=== PATIENT | female | born 1975 | race Caucasian/White ===

== ENCOUNTER 2016-11-04 13:25 | Emergency (ER) | payer MEDICAID ==
[~2016-11-04] VITALS: Ht 162.6 cm; Wt 82.6 kg
[~2016-11-04 13:25] MED LIST: DOCU-67 PO; VIC PO
[2016-11-04 13:56] VITALS: BP 107/74
--- NOTE | 2016-11-04 16:05 | NUR ---
PATIENT OT BED 3 AT THIS TIME.
--- NOTE | 2016-11-04 16:10 | NUR ---
41/F BIB DAUGHTER C/O WEAKNESS , PRODUCTIVE COUGH x 5DAYS. PT STATES HAS SORE TROAT PAIN RADIATING TO L EAR, MID CHEST & UPPER BACK WHEN COUGHING. DENIES N/V/D; SKIN IS PINK/WARM/DRY; AAOX4 WITH EVEN AND STEADY GAIT; LUNGS CLEAR BL; HR EVEN AND REGULAR; PATIENT STATES PAIN OF 9/10 AT THIS TIME; VSS; PATIENT POSITIONED FOR COMFORT; HOB ELEVATED; BEDRAILS UP X2; BED DOWN. ER MD MADE AWARE OF PT STATUS.
[2016-11-04] MEDS ORDERED: ALBUTEROL SULFATE/IPRATROPIU 3 ML SOL IH ONE (16:30)
[2016-11-04] MEDS ORDERED: ACETAMIN/CODEINE 120/12MG-5ML 5 ML UDC PO ONE (16:30)
--- NOTE | 2016-11-04 17:03 | NUR ---
PT BACK FROM X RAY
[2016-11-04 18:37] VITALS: BP 120/74
--- NOTE | 2016-11-04 18:37 | NUR ---
Patient discharged with v/s stable. Written and verbal after care instructions given and explained. Patient alert, oriented and verbalized understanding of instructions. Ambulatory with steady gait. All questions addressed prior to discharge. ID band removed. Patient advised to follow up with PMD. Rx of ZOFRAN ODT, TYLENOL W/ CODEINE & ALBUTEROL given. Patient educated on indication of medication including possible reaction and side effects. Opportunity to ask questions provided and answered.
== END 2016-11-04 18:37 | disposition home or self-care (01) ==
LOC: MED 13:25
DX: J02.8 Acute pharyngitis due to other specified organisms (principal); J40 Bronchitis, not specified as acute or chronic
CPT/HCPCS: 36415; 71020; 87804; 93005; 94640; 99285; J7620